=== PATIENT | female | born 1950 | race Two or more races ===

== ENCOUNTER 2024-11-10 01:54 | Emergency (ER) | payer OTHER, SELFPAY ==
[2024-11-10 01:55] VITALS: BMI 31.8
[2024-11-10 02:31] VITALS: BP 149/84; PULSE 81; RESP 18; TEMP 36.8; O2SAT 98
--- NOTE | 2024-11-10 03:00 | PD.EDANKLE ---
Lower Extremity Injury RME/HPI General Chief Complaint: Ankle/Foot Injury Stated Complaint: RIGHT FOOT PAIN FROM BLISTER Time Seen by Provider: 11/10/24 01:56 Source: patient Arrival date/time: 11/10/24 01:54 73-year-old female past medical history of diabetes presents emergency department complaining of blister to right heel that occurred several days ago after she did a lot of walking in her tennis shoes. Patient reports seeing her primary care provider and was given bacitracin cream to apply to blister. Patient denies any fever, chills, calf pain, swelling, or recent fall or injury. Mode of arrival: ambulatory Limitations: no limitations Related Data Home Medications ?Medication ?Instructions ?Recorded ?Confirmed metformin 500 mg tablet 1,000 mg PO BID 11/13/17 12/06/21 simvastatin 10 mg tablet 10 mg PO QPM 11/13/17 12/06/21 ferrous sulfate 325 mg (65 mg 325 mg PO QDAY 12/06/21 12/06/21 iron) tablet Previous Rx's ?Medication ?Instructions ?Recorded meclizine 25 mg tablet 25 mg PO TID PRN dizziness #30 tabs 05/05/21 meclizine 25 mg tablet 25 mg PO TID PRN dizziness #30 tabs 12/06/21 meclizine 50 mg tablet 50 mg PO QDAY #20 tabs 05/27/22 acetaminophen 500 mg capsule 500 mg PO Q6H PRN pain #30 caps 11/10/24 ibuprofen 600 mg tablet 600 mg PO Q8H PRN pain #20 tabs 11/10/24 Allergies Allergy/AdvReac Type Severity Reaction Status Date / Time No Known Allergies Allergy Verified 05/27/22 11:37 Review of Systems Review of Systems Systems Reviewed: All systems reviewed, normal except as documented Constitutional Constitutional: Reports system reviewed and no additional complaints, except as documented, Denies body ache(s), Denies chills and Denies fever(s) Eyes Eyes: Reports system reviewed and no additional complaints, except as documented and Denies change in vision ENT Ears, Nose, Mouth, and Throat: Reports system reviewed and no additional complaints, except as documented, Denies disequilibrium, Denies dizziness, Denies sore throat and Denies vertigo Cardiovascular Cardiovascular: Reports system reviewed and no additional complaints, except as documented, Denies chest pain and Denies dyspnea Respiratory Respiratory: Reports system reviewed and no additional complaints, except as documented, Denies chest congestion, Denies cough and Denies dyspnea Gastrointestinal Gastrointestinal: Reports system reviewed and no additional complaints, except as documented, Denies abdominal pain, Denies nausea and Denies vomiting Musculoskeletal Musculoskeletal: Reports system reviewed and no additional complaints, except as documented, Denies abnormal gait and Denies arthralgias Integumentary/Breasts Skin/Breast: Reports system reviewed and no additional complaints, except as documented, Denies erythema, Denies rash and Reports wounds Neurologic Neurologic: Reports system reviewed and no additional complaints, except as documented, Denies abnormal gait, Denies disequilibrium, Denies dizziness and Denies vertigo Past Medical History Past Medical History NEUROLOGIC: Negative Neurological Disorders CARDIAC: Positive Cardiac Disorders and Hypercholesterolemia; Negative Congestive Heart Failure RESPIRATORY: Negative Chronic Obstructive Pulmonary Disease (COPD) GASTROINTESTINAL: Negative Gastrointestinal Disorders GENITOURINARY: Negative Genitourinary Disorders or Renal Disease REPRODUCTIVE: Negative Pelvic Inflammatory Disease MUSCULOSKELETAL: Negative Musculoskeletal Disorders ENDOCRINE: Positive Endocrine Disorders and Diabetes Mellitus Type 2; Negative Diabetes Mellitus Type 1 HEMATOLOGIC: Negative Blood Disorders OTHER HISTORY: Positive Blood Transfusions, Chicken Pox, Measles and Mumps; Negative Hospitalization, Falls, Blood Transfusion Reaction or Anesthesia Reactions Family History FAMILY HISTORY: Positive Family Cancer; Negative Family Cardiac Disorders Social History SMOKING STATUS: Never smoker SUBSTANCE USE: does not use ED Exam General Limitations: Present no limitations General appearance: Present alert and in no apparent distress Head Head exam: Present atraumatic Eye Eye exam: Present normal appearance, PERRL and EOMI ENT ENT exam: Present normal exam, normal oropharynx and mucous membranes moist Neck Neck exam: Present normal inspection, full ROM and trachea midline Chest Chest inspection: Present normal inspection and symmetric chest wall rise Respiratory Respiratory exam: Present normal lung sounds bilaterally Cardiovascular Cardiovascular exam: Present regular rate, normal rhythm and normal heart sounds Abdominal Exam Abdominal exam: Present soft and normal bowel sounds Extremities Exam Extremities exam: Present normal inspection and full ROM Expanded Lower Extremity Exam Ankle image:  1. Small approximately 1 x 1 cm blister that has already scabbed up no localized redness or erythema no drainage. Back Exam Back exam: Present normal inspection and full ROM Neurological Exam Neurological exam: Present alert, oriented X3 and CN II-XII intact Psychiatric Psychiatric exam: Present normal affect and normal mood Skin Skin exam: Present warm, dry, intact and normal color Course Quality Measures none Orders Category Date Time Status Acetaminophen Tab [Tylenol ES Tab] Med 11/10/24 02:59 Discontinued 1,000 mg PO X1 ONE Ketorolac Inj [Toradol Inj] Med 11/10/24 02:59 Discontinued 30 mg IM X1 ONE Vital Signs Vital signs: Vital Signs Temperature 98.3 F 11/10/24 02:31 Pulse Rate 81 11/10/24 02:31 Respiratory Rate 18 11/10/24 02:31 Blood Pressure 149/84 H 11/10/24 02:31 Pulse Oximetry (%) 98 11/10/24 02:31 Oxygen Delivery Method Room Air 11/10/24 02:31 98% room air within normal limits Extremity Injury, Lower MDM Narrative MDM Narrative:: 73-year-old female past medical history of diabetes presents emergency department complaining of blister to right heel that occurred several days ago after she did a lot of walking in her tennis shoes. Patient reports seeing her primary care provider and was given bacitracin cream to apply to blister. Patient denies any fever, chills, calf pain, swelling, or recent fall or injury. Small dried up scab to right heel does not appear infected with a scab in place and no drainage. Instructed patient to keep clean and dry. Instructed to have has been checked blister daily due to history of diabetes. Patient foot exam neurovascularly intact with full active range of motion and unremarkable other than the blister. Patient stable for discharge. Patient data External records reviewed:: [facility] previous records Clinical information provided by:: patient and family Social determinants that could affect healthcare access:: none Patient has the following chronic illnesses:: See chart How is presenting disease/condition affected by chronic disease/condition?: uneffected by Evaluation data The following diagnostics were reviewed and interpreted by me:: other (specify) (N/A) Lab and/or radiology exams considered but not ordered:: N/A Interpretation Summary: N/A Medications / Prescriptions Medications or Prescriptions considered but not ordered:: Ordered Medication administrations:: Medication Administration History Discontinued Medications Acetaminophen (Acetaminophen 500 Mg Tablet) 1,000 mg PO X1 ONE Stop: 11/10/24 03:00 Last Admin: 11/10/24 03:06 Dose: 1,000 mg Documented By: PHONG Ketorolac Tromethamine (Ketorolac Inj 60 Mg/2 Ml Vial) 30 mg IM X1 ONE Stop: 11/10/24 03:00 Last Admin: 11/10/24 03:07 Dose: 30 mg Documented By: CB Given Consultations Consultation(s) initiated? (list below): No Diagnosis Extremity Injury, Lower Differential Diagnosis: other (Cellulitis, infected scab) Most likely diagnosis given after review of the tests above:: Blister of heel Admission Indicated Admission indicated?: not indicated Admission Request Was there a request for admission?: No Disposition Plan Disposition Plan: Discharge Discharge Attestation Discharge Attestation: The patient and all family members were given an opportunity to ask questions and understood the discharge instructions. Discharge instructions specifically effects, indications for sooner follow up or return to the emergency department, and the expected course of current diagnosis. Patient condition: Stable Discharge Plan Plan Patient Disposition: HOME (Self Care) Disposition Comment: Stable Prescriptions/Referrals Prescriptions/Med Rec: New ibuprofen 600 mg tablet 600 mg PO Q8H PRN (Reason: pain) Qty: 20 0RF acetaminophen 500 mg capsule 500 mg PO Q6H PRN (Reason: pain) Qty: 30 0RF No Action meclizine 25 mg tablet 25 mg PO TID PRN (Reason: dizziness) Qty: 30 0RF metformin 500 mg Tablet 1,000 mg PO BID simvastatin 10 mg Tablet 10 mg PO QPM ferrous sulfate 325 mg (65 mg iron) Tablet 325 mg PO QDAY meclizine 25 mg tablet 25 mg PO TID PRN (Reason: dizziness) Qty: 30 0RF meclizine 50 mg tablet 50 mg PO QDAY Qty: 20 0RF Referrals: Temporary Provider,ED [Physician] - In 1 week Problem List Clinical Impression: Blister of heel Patient/Caregiver Discharge Instructions Additional Instructions: Daily wound check as instructed. Keep wound clean dry and intact. May wash with warm water and soap. Take Tylenol or ibuprofen as needed for pain. Follow-up with primary care provider in 2 to 3 days. Return to the emergency department for any worsening symptoms or as needed. Print Language: Mauritanian Stand Alone Forms: Breana Award Info., Patient Portal Info Letter PA/ALEJANDRA Supervising Physician PA/ALEJANDRA Supervising Physician: Dr. Ernandez
[2024-11-10] MEDS: ACETAMINOPHEN 500 MG TABLET 1000 MG PO (03:06)
[2024-11-10] MEDS: KETOROLAC INJ 60 MG/2 ML VIAL 30 MG IM (03:07)
== END 2024-11-10 03:25 | disposition home or self-care (01) ==
LOC: SERX 03:17
PROVIDERS: Emergency Provider Emergency Medicine; PCP Physician Assistant
DX: S90.821A Blister (nonthermal), right foot, initial encounter (principal); X58.XXXA Exposure to other specified factors, initial encounter; Y93.01 Activity, walking, marching and hiking
CPT/HCPCS: 96372; 99283; J1885; A9270

== ENCOUNTER 2025-05-05 08:30 | Outpatient (RCR) | payer MEDICARE, SELFPAY ==
--- NOTE | 2025-04-14 11:49 | PT.OIERPT ---
PT OP Initial Eval Patient Information Outpatient Physical Therapy Treatment Date: 04/14/25 Visit Reasons: Bilateral shoulder pain Medical Diagnosis: M25.511; M25.512 Treatment Dx #1: Bilateral Shoulder Pain Treatment Dx #2: Bilateral Shoulder Mobility Deficits Start of Care: 04/14/25 Date of Onset: 1 year ago Smoking Status Smoking Status: Never smoker Initial Assessment Subjective: Pt is a 74 y/o female reports of chronic shoulder pain (02/16) with stiffness. Pt completed xray but does not know the results. Pt has limitation with sleeping, lifting, overhead motions, chores, self care, cooking, cleaning, and performing recreational activities. Objective: Bilateral Shoulder PROM: all motions are WFL with end range pain in all plane Bilateral Shoulder AROM Flexion: 120 deg Abduction:100 deg External Rotation: 90 deg Internal Rotation: 70 deg Bilateral Shoulder MMTs: grossly 3-/5 Bilateral Scapula MMTs: grossly 3-/5 Assessment: Pt demonstrate bilateral shoulder pain with mobility deficits leading to difficulty with ADLs. Pt will benefit from physical therapy to increase ROM, strength, and work on overall mobility. Short Term and Retirement Goals 1) Increase bilateral shoulder AROM WFL in 6 wks to be able to perform overhead motions 2) Increase bilateral shoulder MMTs grossly to 3+/5 in 6 wks to be able to perform lifting activities 3) Decrease shoulder pain to 2/10 in 6 wks to be able to sleep more than 6 hrs 4) Increase scapula MMTs grossly 3+/5 in 6 wks to be able to perform self care activities 5) Indep with HEP Treatment Plan 1) Manual Therapy 2) Therapeutic Activities 3) Therapeutic Exercises 4) Modalities (ice, heat) Frequency and Duration: 2 x wk for 6 wks Certification Dates: 04/14/25 to 07/15/25 Procedure Charges OP PT Eval Mod Complex 30 minutes: Yes
--- NOTE | 2025-04-23 15:48 | PT.ODAYNRPT ---
PT Outpatient Daily Note OP Daily Note Outpatient Physical Therapy Treatment Date: 04/23/25 Visit Reasons: Bilateral shoulder pain Subjective: Pt reports having received results for x-ray during doctor follow up, pt mentioned it read arthritis. Objective: Please see flow sheet for ther ex list. Assessment: Pt compensates with upper trap recruitment during AAROM activities, corrects post verbal cues. Plan: Continue withpOC. Length of Time (minutes) of Treatment: 30 Minutes AERIAL LINEMAN Service Modifier Method I: Divide the number of min of care provided by the AERIAL LINEMAN/GINGER by the total min of care provided then multiply by 100. If greater than 11 percent modifier is required. Method II: Divide the total time of care provided to patient by 10 (round to the nearest whole number) and add 1 min. to set the minimum time requirement. If treatment total was 60 min., then 10% of 6 min PT CQ modifier applied: CQ Modifier applied Procedure Charges Therapeutic Exercise 30 minutes: Yes
--- NOTE | 2025-04-28 10:04 | PT.ODAYNRPT ---
PT Outpatient Daily Note OP Daily Note Outpatient Physical Therapy Treatment Date: 04/28/25 Visit Reasons: Bilateral shoulder pain Subjective: Pt reports B shoulder pain and has difficulty reaching behind back. Objective: Please see flow sheet for ther ex list. Assessment: Interventions completed with minimal pain, applied MHP at end of session. Plan: Continue with pOC. Length of Time (minutes) of Treatment: 30 Minutes Procedure Charges Therapeutic Exercise 30 minutes: Yes
--- NOTE | 2025-04-30 11:16 | PT.ODAYNRPT ---
PT Outpatient Daily Note OP Daily Note Outpatient Physical Therapy Treatment Date: 04/30/25 Visit Reasons: Bilateral shoulder pain Subjective: Pt's shoulders continues to hurt but notice slight improvement with her ROM. Pt will like a theraband for home. Objective: Please see flow chart for list of ther ex performed Assessment: slowly improving with shoulder flexion and scaption AAROM during niyah and finger ladder exercises. Pt given RTB and instructed to use with lows and rows as HEP. Pt demonstrate exercises correctly Plan: Continue with PT Length of Time (minutes) of Treatment: 30 Minutes Procedure Charges Therapeutic Exercise 30 minutes: Yes
--- NOTE | 2025-05-05 09:19 | PT.ODAYNRPT ---
PT Outpatient Daily Note OP Daily Note Outpatient Physical Therapy Treatment Date: 05/05/25 Visit Reasons: Bilateral shoulder pain Subjective: Pt reports pain continues to be present and has high pain down to the elbows. Objective: Please see flow sheet for ther ex list. Assessment: Pt demonstrates poor activity tolerance with light AAROm interventions due to high pain response. Plan: Continue with POC. Length of Time (minutes) of Treatment: 30 Minutes ANALYTICAL LAB TECHNICIAN Service Modifier Method I: Divide the number of min of care provided by the ANALYTICAL LAB TECHNICIAN/LEAD CUSTODIAN by the total min of care provided then multiply by 100. If greater than 11 percent modifier is required. Method II: Divide the total time of care provided to patient by 10 (round to the nearest whole number) and add 1 min. to set the minimum time requirement. If treatment total was 60 min., then 10% of 6 min PT CQ modifier applied: CQ Modifier applied Procedure Charges Therapeutic Exercise 30 minutes: Yes
== END 2025-05-09 23:59 | disposition home or self-care (01) ==
LOC: CPTX 08:30
PROVIDERS: PCP Physician Assistant; Referring Provider Physician Assistant; Visit Provider Physician Assistant
DX: M25.511 Pain in right shoulder (principal); M25.512 Pain in left shoulder; M25.619 Stiffness of unspecified shoulder, not elsewhere classified; G89.29 Other chronic pain
CPT/HCPCS: 97110; 97162

== ENCOUNTER 2025-05-14 10:30 | Outpatient (RCR) | payer MEDICARE, SELFPAY ==
--- NOTE | 2025-05-12 10:07 | PT.ODAYNRPT ---
PT Outpatient Daily Note OP Daily Note Outpatient Physical Therapy Treatment Date: 05/12/25 Visit Reasons: bilateral shoulder pain Subjective: Pt reports shoulder pain is still present but notices some progress with flexibility. Objective: Please see flow sheet for ther ex list. Assessment: Added shoulder flexion with light resistance, pt performed to ~90 deg elevation with no compensatory movements. Plan: Continue with POC. Length of Time (minutes) of Treatment: 30 Minutes TERRITORY MANAGER GENERAL SALES Service Modifier Method I: Divide the number of min of care provided by the TERRITORY MANAGER GENERAL SALES/GINGER by the total min of care provided then multiply by 100. If greater than 11 percent modifier is required. Method II: Divide the total time of care provided to patient by 10 (round to the nearest whole number) and add 1 min. to set the minimum time requirement. If treatment total was 60 min., then 10% of 6 min PT CQ modifier applied: CQ Modifier applied Procedure Charges Therapeutic Exercise 30 minutes: Yes
--- NOTE | 2025-05-14 11:10 | PT.ODS1RPT ---
PT OP Progress/Discharge Note Date of Service: 05/14/25 Progress Note/DC Note Progress Note/Discharge Note: DC Note Patient Information Visit Reasons: bilateral shoulder pain Medical Diagnosis: M25.511' M25.512 Treatment Dx #1: Bilateral Shoulder Pain Service Discharge Date: 05/14/25 Status Subjective: Pt's shoulder feels about the same and continues to hurt leading to difficulty with ADLs. Pt has difficulty with cooking, cleaning, self care, and performing overhead motions Objective: Bilateral Shoulder AROM Flexion: 150 deg Abduction: 120 deg External Rotation: 90 deg Internal Rotation: 70 deg Bilateral Shoulder MMTs: grossly 3+/5 Bilateral Scapula MMTs: grossly 3+/5 Assessment: Pt demonstrate slight improvement with shoulder AROM and strength, however, no change in pain leading to difficulty with ADLs. Pt will no longer benefit from physical therapy due to plateau towards physical therapy goals. Pt was instructed on HEP last session and educated to continue exercises to maintain overall mobility. Pt performed all exercises safely, thank you for your referrals. Plan: D/C home with HEP and follow up with PCP Recommend further imaging per MD's discretion Procedure Charges Therapeutic Exercise 30 minutes: Yes
== END 2025-06-08 23:59 | disposition home or self-care (01) ==
LOC: CPTX 10:30
PROVIDERS: PCP Physician Assistant; Referring Provider Physician Assistant; Visit Provider Physician Assistant
DX: M25.512 Pain in left shoulder (principal); M25.511 Pain in right shoulder; M25.612 Stiffness of left shoulder, not elsewhere classified; M25.611 Stiffness of right shoulder, not elsewhere classified; G89.29 Other chronic pain
CPT/HCPCS: 97110

== ENCOUNTER 2025-07-13 04:31 | Emergency (ER) | payer MEDICARE, SELFPAY ==
[2025-07-13 04:32] VITALS: BMI 31.2
[2025-07-13 04:45] VITALS: BP 139/81; PULSE 80; RESP 17; TEMP 36.9; O2SAT 99
--- NOTE | 2025-07-13 04:55 | PD.EDRME ---
Rapid Medical Screening Exam RME Arrival date/time: 07/13/25 04:31 Chief Complaint: Headache Vital signs: Vital Signs Temperature 98.5 F 07/13/25 04:45 Pulse Rate 80 07/13/25 04:45 Respiratory Rate 17 07/13/25 04:45 Blood Pressure 139/81 H 07/13/25 04:45 Pulse Oximetry (%) 99 07/13/25 04:45 Oxygen Delivery Method Room Air 07/13/25 04:45 RME Narrative: Left-sided head/neck pain radiating down LUE x3 months worsening the past 2 days. 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 Exam: well-appearing, NAD Clinical Impression: headache, neck pain
--- NOTE | 2025-07-13 04:57 | EKG_ITS ---
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
--- NOTE | 2025-07-13 04:57 | XR_ITS ---
Examination: CT brain head without contrast. 2-D sagittal coronal reconstructions Date and time of exam: July 13, 2025, 0544 hours INDICATIONS: Head pain radiating down the left arm beginning 3 months ago CTDI: vol (mGy): 46.2 DLP: (mGycm): 859 Technique: Multiple CT axial sections of the brain have been obtained, 5 mm slice thickness. Contrast has not been administered. 2-D sagittal, coronal reconstructions have been obtained Low dose protocols were performed. One or more of the following dose reduction techniques were used; automated exposure control, adjustment of the mA and/or KV according to patient size, use of iterative reconstruction technique. Findings: No significant ventricular enlargement. Intra-axial or extra-axial hemorrhage density is not seen. No mass effect or midline shift Basal cisterns are not remarkable. Fourth ventricle is midline. Cranial vault intact. Small left frontal cerebral calcification size Chronic ethmoid sinusitis Minimal acute right sphenoid sinusitis Impression: Negative for acute hemorrhage, mass effect or midline shift Sinusitis as above
--- NOTE | 2025-07-13 04:57 | XR_ITS ---
Examination: CT cervical spine without contrast 2-D sagittal reconstructions 2-D coronal reconstructions 3-D reconstructions. Exam date and time: July 13, 2025, 0544 hours INDICATIONS: Neck pain radiating down the left arm beginning 3 months ago CTDI:vol (mGy) 14.2 DLP: (mGycm) 257 Technique: Multiple 2 mm axial sections of the cervical spine have been obtained. The coronal and sagittal reconstructions have been obtained. 3-D reconstructions have been obtained. Low dose protocols were performed. One or more of the following dose reduction techniques were used; automated exposure control, adjustment of the mA and/or KV according to patient size, use of iterative reconstruction technique. Findings: Axial sections demonstrate intact base of the skull. C1 exhibit satisfactory relationship to the odontoid. No acute cervical vertebral body fracture seen. Alignment posterior spinous processes satisfactory. No significant cervical disc narrowing Axial images demonstrate no focal significant neuroforaminal stenosis Impression: No acute cervical fracture. No significant cervical disc narrowing No significant neuroforaminal stenosis MRI cervical spine without contrast follow-up would be preferable in assessing for acquired soft tissue spinal stenosis
[2025-07-13] MEDS: HYDROcodone/APAP 5/325 TABLET 1 TAB PO (05:13)
[2025-07-13] MEDS: LIDOCAINE 5% 1 PATCH TOP (05:32)
[2025-07-13 05:44] LABS: Basophils # (Auto) 0.0 Thou/mm3 (0.0-0.2); Basophils % (Auto) 1 % (0-2.5); Eosinophils # (Auto) 0.2 Thou/mm3 (0.0-0.5); Eosinophils % (Auto) 4 % (0-10); Hematocrit 37.7 % (36.0-46.0); Hemoglobin 12.6 g/dL (12.0-16.0); Immature Granulocytes Auto 0.01 Thou/mm3 (0.00-0.00); Lymphocytes # (Auto) 2.4 Thou/mm3 (1.0-4.8); Lymphocytes % (Auto) 38 % (10-50); Mean Corpuscular HGB Conc 33.4 g/dl (31.0-37.0); Mean Corpuscular Hemoglobin 30.8 pg (25.0-35.0); Mean Corpuscular Volume 92 fL (80-100); Monocytes # (Auto) 0.6 Thou/mm3 (0.0-0.8); Monocytes % (Auto) 9 % (0-12); Neutrophils # (Auto) 3.1 Thou/mm3 (1.8-7.7); Neutrophils % (Auto) 49 % (37-80); Nucleated Red Blood Cell # 0.00 Thou/mm3 (0.00-0.00); Nucleated Red Blood Cell % 0 /100 WBC (0); Platelet Count 221 Thou/mm3 (140-440); RDW Standard Deviation 42.7 fL (36.4-46.3); Red Blood Count 4.09 Miln/mm3 (4.00-5.20); White Blood Count 6.3 Thou/mm3 (3.6-11.0)
[2025-07-13 06:01] LABS: Alanine Aminotransferase 18 U/L (10-49); Albumin, Serum 5.0 gm/dL (3.4-4.8); Albumin/Globulin Ratio 2.8 (1.2-2.2); Alkaline Phosphatase 55 U/L (46-116); Anion Gap 11 (7-16); Aspartate Amino Transferase 20 U/L (0-34); BUN/Creatinine Ratio 13 Ratio (12-20); Bilirubin,Total 0.6 mg/dL (0.3-1.2); Blood Urea Nitrogen 10 mg/dL (9-23); Calcium 9.7 mg/dL (8.3-10.6); Calcium (Corrected) 9.7 mg/dL (8.5-10.1); Carbon Dioxide 27.9 mMol/L (20.0-31.0); Chloride 102 mMol/L (98-107); Creatinine (Component) 0.8 mg/dL (0.6-1.3); Estimated Creatinine Clearance 56.5 mL/min (>60); Globulin 1.8 gm/dL (2.3-3.5); Glucose 173 mg/dL (74-106); Osmolality,Calculated 284 (275-295); Potassium 4.6 mMol/L (3.4-5.1); Sodium 141 mMol/L (136-145); Total Protein 6.8 gm/dL (5.7-8.2); Troponin I < 0.002 ng/mL (0.0-0.045); eGFR > 60 See Note
[2025-07-13 07:31] VITALS: BP 114/76; PULSE 65; RESP 16; TEMP 36.3; O2SAT 97
--- NOTE | 2025-07-13 08:35 | PD.EDHA ---
ED Headache RME/HPI General Chief Complaint: Headache Stated Complaint: HEADACHE/NECK AND LEFT ARM PAIN Time Seen by Provider: 07/13/25 05:16 Arrival date/time: 07/13/25 04:31 RME / HPI RME / HPI Narrative: Left-sided head/neck pain radiating down LUE x3 months worsening the past 2 days. 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 DR. OLSON MAIN ED EVALUATION 74 yo female patient c/o left sided ANN from forehead radiating down to left upper shoulder described as tightness. No vision changes. States she also has pain in her left shoulder joint for which she has gone to PT however did not seem to help. Denies CP, SOB, fever. Received [place] in triage with some relief. Exam: well-appearing, NAD Impression: headache, neck pain Related Data Home Medications ?Medication ?Instructions ?Recorded ?Confirmed metformin 500 mg tablet 1,000 mg PO BID 11/13/17 12/06/21 simvastatin 10 mg tablet 10 mg PO QPM 11/13/17 12/06/21 ferrous sulfate 325 mg (65 mg 325 mg PO QDAY 12/06/21 12/06/21 iron) tablet Previous Rx's ?Medication ?Instructions ?Recorded meclizine 25 mg tablet 25 mg PO TID PRN dizziness #30 tabs 05/05/21 meclizine 25 mg tablet 25 mg PO TID PRN dizziness #30 tabs 12/06/21 meclizine 50 mg tablet 50 mg PO QDAY #20 tabs 05/27/22 acetaminophen 500 mg capsule 500 mg PO Q6H PRN pain #30 caps 11/10/24 ibuprofen 600 mg tablet 600 mg PO Q8H PRN pain #20 tabs 11/10/24 ibuprofen 600 mg tablet 600 mg PO Q6H PRN pain #30 tabs 07/13/25 Allergies Allergy/AdvReac Type Severity Reaction Status Date / Time No Known Allergies Allergy Verified 05/27/22 11:37 Review of Systems Review of Systems Systems Reviewed: All systems reviewed, normal except as documented Past Medical History Past Medical History CARDIAC: Positive Cardiac Disorders and Hypercholesterolemia ENDOCRINE: Positive Endocrine Disorders and Diabetes Mellitus Type 2 OTHER HISTORY: Positive Blood Transfusions, Chicken Pox, Measles and Mumps Family History FAMILY HISTORY: Positive Family Cancer Social History SMOKING STATUS: Never smoker SUBSTANCE USE: does not use ED Exam Narrative Physical exam: GENERAL APPEARANCE: alert and oriented x 4, well-developed, well-nourished, no acute distress HEENT: Normocephalic, atraumatic; pupils equal, round, reactive to light; EOMI; mucous membranes pink, moist; oropharynx clear NECK: Supple LUNGS: CTABL; no wheezes, no rales, no rhonchi HEART: Regular rate, regular rhythm; normal S1, S2; no murmurs ABDOMEN: non distended; normal BS; soft, no tenderness, no guarding, no rebound; no masses, no organomegaly, no hernia BACK: Muscle spasm left trapezius muscle, tenderness along trapezius muscle along the left side EXTREMITIES: atraumatic; no edema NEUROLOGIC: awake; alert and oriented x4; cranial nerves II-XII grossly intact; no focal sensory or motor deficits PSYCHIATRIC: appropriate mood and affect SKIN: warm, dry, normal color; no rashes Course Quality Measures none Orders Category Date Time Status EKG (ED ONLY) *Do not use* NOW Care 07/13/25 04:[address] cervical spine wo con Stat Exams 07/13/25 04:[address] head/brain wo con Stat Exams 07/13/25 04:57 Completed EKG (ED Only) Stat Exams 07/13/25 04:57 Draft C-Reactive Protein Stat Lab 07/13/25 05:29 Completed CBC Stat Lab 07/13/25 05:29 Completed CMP [Comprehensive Metabolic Panel] Stat Lab 07/13/25 05:29 Completed Sed Rate (ESR) Stat Lab 07/13/25 05:29 Completed Troponin I Stat Lab 07/13/25 05:29 Completed CYCLObenzaPRINE [Flexeril] Med 07/13/25 08:35 Discontinued 5 mg PO X1 ONE HYDROcodone*/APAP 5/325 [[place] 5/325] Med 07/13/25 04:58 Discontinued 1 tab PO X1 ONE Ketorolac Inj [Toradol Inj] Med 07/13/25 08:35 Discontinued 30 mg IM X1 ONE Lidocaine 5% Patch Med 07/13/25 04:58 Discontinued 1 patch TOP X1 ONE Vital Signs Vital signs: Vital Signs Temperature 98.5 F 07/13/25 04:45 Pulse Rate 80 07/13/25 04:45 Respiratory Rate 17 07/13/25 04:45 Blood Pressure 139/81 H 07/13/25 04:45 Pulse Oximetry (%) 99 07/13/25 04:45 Oxygen Delivery Method Room Air 07/13/25 04:45 Pulse ox is 99% on room air which is adequate. Headache MDM Narrative MDM Narrative:: Charla Duong am scribing for and in the presence of Dr. Olson. Patient data External records reviewed:: [facility] previous records Clinical information provided by:: patient Social determinants that could affect healthcare access:: none Patient has the following chronic illnesses:: Diabetes and hyperlipidemia How is presenting disease/condition affected by chronic disease/condition?: uneffected by Evaluation data The following diagnostics were reviewed and interpreted by me:: lab results, radiology exam(s) and EKG tracing(s) (EKG @ 05:10 AM. Normal sinus rhythm, rate 73, no STEMI. ) Lab and/or radiology exams considered but not ordered:: None Interpretation Summary: Ordering Physician: Karthik Matthew PA-C Date of Service: 07/13/25 Procedure(s): CT cervical spine wo con Accession Number(s): [id number] cc: Benito Gonzalez PA-C; Inder Garcia MD; Karthik Matthew PA-C~ Examination: CT cervical spine without contrast 2-D sagittal reconstructions 2-D coronal reconstructions 3-D reconstructions. Exam date and time: July 13, 2025, 0544 hours INDICATIONS: Neck pain radiating down the left arm beginning 3 months ago CTDI:vol (mGy) 14.2 DLP: (mGycm) 257 Technique: Multiple 2 mm axial sections of the cervical spine have been obtained. The coronal and sagittal reconstructions have been obtained. 3-D reconstructions have been obtained. Low dose protocols were performed. One or more of the following dose reduction techniques were used; automated exposure control, adjustment of the mA and/or KV according to patient size, use of iterative reconstruction technique. Findings: Axial sections demonstrate intact base of the skull. C1 exhibit satisfactory relationship to the odontoid. No acute cervical vertebral body fracture seen. Alignment posterior spinous processes satisfactory. No significant cervical disc narrowing Axial images demonstrate no focal significant neuroforaminal stenosis Impression: No acute cervical fracture. No significant cervical disc narrowing No significant neuroforaminal stenosis MRI cervical spine without contrast follow-up would be preferable in assessing for acquired soft tissue spinal stenosis Dictated By: Inder Garcia MD Signed By: <Electronically signed by Inder Garcia MD in [place]> 07/13/25 0816 Ordering Physician: Karthik Matthew PA-C Date of Service: 07/13/25 Procedure(s): CT head/brain wo con Accession Number(s): [id number] cc: Benito Gonzalez PA-C; Inder Garcia MD; Karthik Matthew PA-C~ Examination: CT brain head without contrast. 2-D sagittal coronal reconstructions Date and time of exam: July 13, 2025, 0544 hours INDICATIONS: Head pain radiating down the left arm beginning 3 months ago CTDI: vol (mGy): 46.2 DLP: (mGycm): 859 Technique: Multiple CT axial sections of the brain have been obtained, 5 mm slice thickness. Contrast has not been administered. 2-D sagittal, coronal reconstructions have been obtained Low dose protocols were performed. One or more of the following dose reduction techniques were used; automated exposure control, adjustment of the mA and/or KV according to patient size, use of iterative reconstruction technique. Findings: No significant ventricular enlargement. Intra-axial or extra-axial hemorrhage density is not seen. No mass effect or midline shift Basal cisterns are not remarkable. Fourth ventricle is midline. Cranial vault intact. Small left frontal cerebral calcification size Chronic ethmoid sinusitis Minimal acute right sphenoid sinusitis Impression: Negative for acute hemorrhage, mass effect or midline shift Sinusitis as above Dictated By: Inder Garcia MD Signed By: <Electronically signed by Inder Garcia MD in [place]> 07/13/25 0820 Medications / Prescriptions Medications or Prescriptions considered but not ordered:: None Medication administrations:: Medication Administration History Discontinued Medications Hydrocodone Bitart/Acetaminophen (Hydrocodone/Apap 5/325 Tablet) 1 tab PO X1 ONE Stop: 07/13/25 04:59 Last Admin: 07/13/25 05:13 Dose: 1 tab Documented By: DT Cyclobenzaprine HCl (Cyclobenzaprine 5 Mg Tablet) 5 mg PO X1 ONE Stop: 07/13/25 08:36 Last Admin: 07/13/25 08:41 Dose: 5 mg Documented By: JEISON Ketorolac Tromethamine (Ketorolac Inj 30 Mg/Ml Vial) 30 mg IM X1 ONE Stop: 07/13/25 08:36 Last Admin: 07/13/25 08:42 Dose: 30 mg Documented By: GM Lidocaine (Lidocaine 5% 1 Patch) 1 patch TOP X1 ONE Stop: 07/13/25 04:59 Last Admin: 07/13/25 05:32 Dose: 1 patch Documented By: DT See above Consultations Consultation(s) initiated? (list below): No Diagnosis Differential diagnosis headache: migraine, tension headache, subarachnoid hemorrhage and headache Most likely diagnosis given after review of the tests above:: Headache Neck pain Muscle spasm of left shoulder area Admission Indicated Admission indicated?: not indicated Explain why admission is indicated or not indicated:: With no condition needing emergent intervention, there was no indication for admission. Admission Request Was there a request for admission?: No Disposition Plan Disposition Plan: Discharge Discharge Attestation Discharge Attestation: The patient and all family members were given an opportunity to ask questions and understood the discharge instructions. Discharge instructions specifically effects, indications for sooner follow up or return to the emergency department, and the expected course of current diagnosis. Patient condition: Stable Discharge Plan Plan Patient Disposition: HOME (Self Care) Prescriptions/Referrals Prescriptions/Med Rec: New ibuprofen 600 mg tablet 600 mg PO Q6H PRN (Reason: pain) Qty: 30 0RF No Action meclizine 25 mg tablet 25 mg PO TID PRN (Reason: dizziness) Qty: 30 0RF metformin 500 mg Tablet 1,000 mg PO BID simvastatin 10 mg Tablet 10 mg PO QPM ferrous sulfate 325 mg (65 mg iron) Tablet 325 mg PO QDAY meclizine 25 mg tablet 25 mg PO TID PRN (Reason: dizziness) Qty: 30 0RF meclizine 50 mg tablet 50 mg PO QDAY Qty: 20 0RF ibuprofen 600 mg tablet 600 mg PO Q8H PRN (Reason: pain) Qty: 20 0RF acetaminophen 500 mg capsule 500 mg PO Q6H PRN (Reason: pain) Qty: 30 0RF Referrals: Benito Gonzalez PA-C [Primary Care Provider] - In 1 week Problem List Clinical Impression: Headache, Neck pain, Muscle spasm of left shoulder area Patient/Caregiver Discharge Instructions Education Materials: ED Muscle Spasm, ED Back and Neck Pain, General Print Language: Korean Stand Alone Forms: Breana Award Info., Patient Portal Info Letter
[2025-07-13] MEDS: KETOROLAC INJ 30 MG/ML VIAL IM (08:42)
[2025-07-13 09:03] LABS: Sed Rate (ESR) 15 mm/hr (0-30)
[2025-07-13 09:12] LABS: C-Reactive Protein < 0.5 mg/dL (0.0-0.9)
[2025-07-13 09:37] VITALS: BP 132/85; PULSE 65; RESP 17; TEMP 36.4; O2SAT 97
== END 2025-07-13 10:01 | disposition home or self-care (01) ==
PROVIDERS: Physician Assistant; Emergency Provider Emergency Medicine
DX: J32.9 Chronic sinusitis, unspecified (principal); M48.00 Spinal stenosis, site unspecified
CPT/HCPCS: 36415; 70450; 72125; 80053; 84484; 85025; 85652; 86140; 93005; 96372; 99284; J1885; J3490; A9270